=== PATIENT | female | born 1930 | race Caucasian/White ===

== ENCOUNTER 2017-03-16 10:52 | Day surgery (SDC) | payer OTHER ==
[~2017-03-16] VITALS: Ht 160 cm; Wt 67.3 kg
[2017-03-16] MEDS ORDERED: SIMV40TA PO (11:10)
[2017-03-16] MEDS ORDERED: AMIT25TA9 PO (11:10)
[2017-03-16] MEDS ORDERED: NAPR375T PO (11:10)
[2017-03-16] MEDS ORDERED: LEVO50TA4 PO (11:10)
[2017-03-16 11:12] VITALS: BP 138/83; PULSE 84; RESP 18; TEMP 97.5; O2SAT 98
[2017-03-16 11:56] LABS: AUTOMATED NEUTROPHIL # 3.3 TH/MM3 (1.8-7.7); BASOPHIL # 0.1 TH/MM3 (0-0.2); BASOPHIL % 1.1 % (0.0-2.0); EOSINOPHIL # 0.3 TH/MM3 (0-0.4); EOSINOPHIL % 4.2 % (0.0-4.0); HEMATOCRIT 29.6 % (35.0-46.0); HEMO FLAGS DIFF FINAL; LYMPH % 32.8 % (9.0-44.0); MEAN CORPUSCULAR HEMOGLOBIN 21.8 PG (27.0-34.0); MEAN CORPUSCULAR HGB CONC 31.7 % (32.0-36.0); MONO % 7.5 % (0.0-8.0); NEUT % 54.4 % (16.0-70.0); PLATELET COUNT 398 TH/MM3 (150-450); RED CELL DISTRIBUTION WIDTH 20.2 % (11.6-17.2); WHITE BLOOD COUNT 6.1 TH/MM3 (4.0-11.0)
[2017-03-16] MEDS ORDERED: LIDOCAINE 1%/EPINEPHrine 1:100,000 SOLN 20 ML VIAL ONE (11:59)
[2017-03-16] MEDS ORDERED: SODIUM CHLOR 0.9% 1000 ML IV SCH (12:00)
[2017-03-16 12:05] LABS: APTT (PATIENT) 26.1 SEC (24.3-30.1); PROTHROMBIN TIME - PATIENT 11.2 SEC (9.8-11.6)
[2017-03-16] MEDS ORDERED: fentaNYL CITRATE 250 MCG/5 ML AMP ONE (13:16)
[2017-03-16] MEDS ORDERED: MIDAZOLAM HCL 2 MG/2 ML VIAL ONE (13:16)
[2017-03-16 13:50] VITALS: BP 120/66; PULSE 85; RESP 20; TEMP 97.6; O2SAT 92
[2017-03-16 14:05] VITALS: BP 122/67; PULSE 84; RESP 20; O2SAT 94
[2017-03-16 14:35] VITALS: BP 125/70; PULSE 82; RESP 20; O2SAT 95
--- NOTE | 2017-03-16 15:00 | RADRPT ---
EXAM DATE/TIME: 03/16/2017 13:27 [place] COMPARISON: No previous studies available for comparison. INDICATIONS : Left iliac bone lesion. SEDATION TIME: 15 minutes BIOPSY SITE: Left MEDICATION(S): 1.) 2.5 mg midazolam (Versed) IV 2.) 125 mcg fentanyl (Sublimaze) IV DEVICE(S): 1.) 11 gauge Bone biopsy needle MEDICAL HISTORY : Carcinoma, breast. SURGICAL HISTORY : None. ENCOUNTER: Initial ACUITY: 1 day PAIN SCORE: 0/10 LOCATION: Left A total of one core specimen(s) were obtained and sent to the laboratory for pathologic evaluation. PROCEDURE: 1. CT guided bone deep biopsy. 2. Conscious sedation with continuous EKG and oximetry monitoring. 3. EKG and oximetry remained stable throughout the procedure. Prior to the procedure informed consent was obtained. Any appropriate prior imaging studies were rev iewed. Using automated exposure control and adjustment of the mA and/or kV according to patient size, radiat ion dose was kept as low as reasonably achievable to obtain optimal diagnostic quality images. DICOM format image data is available electronically for review and comparison. The site was prepped in a sterile fashion. Full sterile technique was used, including cap, mask, arnold rile gloves and gown and a large sterile sheet. Hand hygiene and 2% chlorhexidine and/or betadine/al cohol prep was utilized per protocol for cutaneous antisepsis. The skin and subcutaneous tissues wer e infiltrated with local anesthetic solution. Under CT guidance an 11 gauge core of bone was obtained on the PET positive lesion left posterior sup erior iliac spine. Follow-up CT scan reveals no hemorrhage. The patient tolerated the procedure well and there were no complications. The patient was returned to the Radiology Outpatient Unit in stable condition. CONCLUSION: Uncomplicated CT guided biopsy left posterior superior iliac spine. Guillermo Aragon MD FACR on March 16, 2017 at 14:57 Board Certified Radiologist. This report was verified electronically.
[2017-03-16 15:05] VITALS: BP 110/63; PULSE 77; RESP 20; O2SAT 94
[2017-03-16 15:40] VITALS: BP 114/67; PULSE 79; RESP 20; O2SAT 97
== END 2017-03-16 15:55 | disposition home or self-care (01) ==
LOC: HRIP 10:52 → HRAD 10:52
PROVIDERS: ATTEND Internal Medicine Hematology & Oncology
DX: C79.51 Secondary malignant neoplasm of bone (principal); I10 Essential (primary) hypertension; E03.9 Hypothyroidism, unspecified; E78.00 Pure hypercholesterolemia, unspecified; Z85.3 Personal history of malignant neoplasm of breast; Z01.818 Encounter for other preprocedural examination
CPT/HCPCS: 20225; 77012; 85025; 85610; 85730; 88307; 88331; 88333; 88341; 88342; 99152; C1830; J2250; J3010